=== PATIENT | male | born 1965 | race Caucasian/White ===

== ENCOUNTER 2022-04-21 11:16 | Emergency (ER) | payer OTHER ==
[2022-04-21] MEDS ORDERED: Lidocaine 1% w/Epinephrine 1:100K 20 ML VIAL ONE (11:35)
[2022-04-21] MEDS ORDERED: Bacitracin 1 PK ONE (12:07)
[2022-04-21] MEDS ORDERED: Cephalexin 250 MG CAP ONE (12:08)
[2022-04-21] MEDS ORDERED: Boostrix 0.5 ML (Tdap) VIAL ONE (12:08)
== END 2022-04-21 12:30 | disposition home or self-care (01) ==
LOC: BURERS 11:16
DX: S31.105A Unspecified open wound of abdominal wall, periumbilic region without penetration into peritoneal cavity, initial encounter (principal); L25.9 Unspecified contact dermatitis, unspecified cause; X58.XXXA Exposure to other specified factors, initial encounter
CPT/HCPCS: 90471; 90715